=== PATIENT | male | born 1995 | race Caucasian/White ===

== ENCOUNTER 2017-08-07 20:29 | Inpatient (IN) | payer BC ==
--- NOTE | 2017-08-07 20:53 | EDPHY ---
H & P Stated Complaint: Cellulitis progressing down arm. - Personal History Current Tetanus/Diphtheria Vaccine: Unsure Current Tetanus Diphtheria and Acellular Pertussis (TDAP): Unsure - Medical/Surgical History Hx Asthma: No Hx Chronic Respiratory Disease: No Hx Diabetes: No Hx Cardiac Disease: No Hx Renal Disease: No Hx Cirrhosis: No Hx Alcoholism: Yes Hx HIV/AIDS: No Hx Splenectomy or Spleen Trauma: No Other PMH: Anxiety, ADHD. - Social History Smoking Status: Current some day smoker Time Seen by Provider: 08/07/17 20:40 HPI/ROS: CHIEF COMPLAINT: Worsening left elbow erythema HISTORY OF PRESENT ILLNESS: 22-year-old immunocompetent male with no history of chronic skin infections complaining of progressively enlarging left elbow erythema. The erythema started 4 days ago, he was seen emergency department in [place], [place], given intramuscular injection of unknown medicines, possible Rocephin, discharged with Keflex which she has been taking. Notes that the erythema has become progressively larger. He denies fever, chills, nausea, vomiting, IV drug use history, urethritis symptoms. REVIEW OF SYSTEMS: A ten point review of systems was performed and is negative with the exception of the items mentioned in the HPI PAST MEDICAL & SURGICAL HISTORY: No history of chronic skin infections SOCIAL HISTORY:Nonsmoker. Student. PHYSICAL EXAM (Prior to examination, patient consented to physical exam, hands were washed and my usual and customary physical exam procedures followed) 1) GENERAL: Well-developed, well-nourished, alert and oriented. Appears to be in no acute distress. 2) HEAD: Normocephalic, atraumatic 3) HEENT: Pupils equal, round, reactive to light bilaterally. Sclera anicteric. Nasopharynx, oropharynx, clear, no lesions. Ears bilaterally with normal tympanic membranes. 4) NECK: Full range of motion, no meningeal signs. 5) LUNGS: Clear auscultation bilaterally, no wheezes, no rhonchi, no retractions. 6) HEART: Regular rate and rhythm, no murmur, no heave, no gallop. 7) ABDOMEN: No guarding, no rebound, no focal tenderness, negative McBurney's, negative Dhillon's, negative Rovsing's, negative peritoneal sign, 8) MUSCULOSKELETAL: Left upper extremity: Dorsal aspect of left elbow beefy red erythema, induration to the dorsal aspect which has extended beyond the areas of delineation. No lymphangitic streaking. No crepitus. 9) BACK: No CVA tenderness, no midline vertebral tenderness, no fluctuance, no step-off, no obvious trauma, no visual or palpable abnormality. 10) SKIN: No rash, no petechiae. 11) Psychiatric: Patient is oriented X 3, there is no agitation. DIFFERENTIAL DIAGNOSIS: In no particular include but limited to septic arthritis, septic olecranon bursitis, cellulitis, necrotizing fasciitis (Marco A Rouse) Constitutional: Initial Vital Signs Temperature (C) 36.7 C 08/07/17 20:34 Heart Rate 97 08/07/17 20:34 Respiratory Rate 16 08/07/17 20:34 Blood Pressure 119/65 08/07/17 20:34 O2 Sat (%) 99 08/07/17 20:34 O2 Delivery Mode Room Air Allergies/Adverse Reactions: amoxicillin Allergy (Verified 08/07/17 20:38) Home Medications: Medication Instructions Recorded Adderall 10 mg Tablet 08/07/17 Lexapro 08/07/17 Medical Decision Making - Diagnostics Imaging Results: Imaging Impressions Elbow X-Ray 08/07/17 20:54 Impression: 1. No underlying osseous abnormality seen left elbow. 2. Soft tissue swelling along the dorsal aspect proximal ulna. Images reviewed by myself (Marco A Rouse) ED Course/Re-evaluation: I evaluated this patient and examined his arm. This is not an intra-articular infection as he has excellent range of motion of the left elbow. This looks like a septic olecranon bursitis which is not responding to the intramuscular antibiotics he received a couple of days ago in a different town. Due to the worsening aspect of this and the fact that it may need to be drained we will admit this patient to the hospital for IV vancomycin. He does have some significant cellulitis around the dorsal elbow in addition to some lymphangitis and positive axillary lymph nodes. (Uriel Amaro) 8:53 p.m.: Patient was also seen exam by Dr. Uriel Amaro in the ER. Doubt necrotizing fasciitis. Doubt septic arthritis. Septic olecranon bursitis is not ruled out. At this time will hold on aspiration given the extent of erythema induration and risk of introducing is infection. 9:35 p.m.: Consultation with hospitalist Dr. Rudolph who will admit patient for left elbow cellulitis. (Marco A Rouse) - Data Points Laboratory Results: Laboratory Results 08/07/17 21:00 08/07/17 21:00 08/07/17 08/07/17 08/07/17 21:00 21:00 21:00 WBC 7.63 10^3/uL 10^3/uL (3.80-9.50) RBC 5.47 10^6/uL 10^6/uL (4.40-6.38) Hgb 16.7 g/dL g/dL (13.7-17.5) Hct 47.2 % % (40.0-51.0) MCV 86.3 fL fL (81.5-99.8) MCH 30.5 pg pg (27.9-34.1) MCHC 35.4 g/dL g/dL (32.4-36.7) RDW 12.0 % % (11.5-15.2) Plt Count 154 10^3/uL 10^3/uL (150-400) MPV 10.1 fL fL (8.7-11.7) Neut % (Auto) 70.2 % % (39.3-74.2) Lymph % (Auto) 19.0 % % (15.0-45.0) Hall % (Auto) 8.7 % % (4.5-13.0) Eos % (Auto) 1.4 % % (0.6-7.6) Baso % (Auto) 0.4 % % (0.3-1.7) Nucleat RBC Rel Count 0.0 % % (0.0-0.2) Absolute Neuts (auto) 5.36 10^3/uL 10^3/uL (1.70-6.50) Absolute Lymphs (auto) 1.45 10^3/uL 10^3/uL (1.00-3.00) Absolute Monos (auto) 0.66 10^3/uL 10^3/uL (0.30-0.80) Absolute Eos (auto) 0.11 10^3/uL 10^3/uL (0.03-0.40) Absolute Basos (auto) 0.03 10^3/uL 10^3/uL (0.02-0.10) Absolute Nucleated RBC 0.00 10^3/uL 10^3/uL (0-0.01) Immature Gran % 0.3 % % (0.0-1.1) Immature Gran # 0.02 10^3/uL 10^3/uL (0.00-0.10) PT 14.6 SEC SEC (12.0-15.0) INR 1.12 (0.83-1.16) APTT 26.7 SEC SEC (23.0-38.0) VBG Lactic Acid Sodium 141 mEq/L mEq/L (134-144) Potassium 4.0 mEq/L mEq/L (3.5-5.2) Chloride 96 mEq/L L mEq/L (97-110) Carbon Dioxide 28 mEq/l mEq/l (22-31) Anion Gap 17 mEq/L H mEq/L (8-16) BUN 21 mg/dL mg/dL (7-23) Creatinine 0.9 mg/dL mg/dL (0.7-1.3) Estimated GFR > 60 Glucose 111 mg/dL H mg/dL (70-100) Calcium 10.1 mg/dL mg/dL (8.5-10.4) Total Bilirubin 0.8 mg/dL mg/dL (0.1-1.4) 08/07/17 21:00 WBC RBC Hgb Hct MCV MCH MCHC RDW Plt Count MPV Neut % (Auto) Lymph % (Auto) Hall % (Auto) Eos % (Auto) Baso % (Auto) Nucleat RBC Rel Count Absolute Neuts (auto) Absolute Lymphs (auto) Absolute Monos (auto) Absolute Eos (auto) Absolute Basos (auto) Absolute Nucleated RBC Immature Gran % Immature Gran # PT INR APTT VBG Lactic Acid 1.2 mmol/L mmol/L (0.7-2.1) Sodium Potassium Chloride Carbon Dioxide Anion Gap BUN Creatinine Estimated GFR Glucose Calcium Total Bilirubin Medications Given: Discontinued Medications Cefazolin Sodium/Dextrose (Ancef 1 Gm (Premix)) 50 mls @ 200 mls/hr IV EDNOW ONE PRN Reason: Protocol Stop: 08/07/17 21:08 Last Admin: 08/07/17 21:10 Dose: 50 mls Departure - Departure Disposition: [facility] Inpatient Acute Clinical Impression: Cellulitis of left arm Condition: Good Referrals: LUZMARIA HANKINS [Other] - As per Instructions
[2017-08-07 21:12] LABS: % IMMATURE GRANULYOCYTES 0.3 % (0.0-1.1); ABSOLUTE IMMATURE GRANULOCYTES 0.02 10^3/uL (0.00-0.10); ADD DIFF? NO; ADD MORPH? NO; ADD SCAN? NO; ATYPICAL LYMPHOCYTE FLAG 10 (0-99); FRAGMENT RBC FLAG 0 (0-99); HEMATOCRIT 47.2 % (40.0-51.0); HEMOGLOBIN 16.7 g/dL (13.7-17.5); LEFT SHIFT FLG 0 (0-99); LIPEMIA HEMOLYSIS FLAG 90 (0-99); MEAN CELL HEMOGLOBIN 30.5 pg (27.9-34.1); MEAN CELL HEMOGLOBIN CONCENTR. 35.4 g/dL (32.4-36.7); MEAN CELL VOLUME 86.3 fL (81.5-99.8); MEAN PLATELET VOLUME 10.1 fL (8.7-11.7); PLATELET CLUMPS FLAG 0 (0-99); PLATELET COUNT 154 10^3/uL (150-400); RED BLOOD CELL COUNT 5.47 10^6/uL (4.40-6.38)
[2017-08-07 21:20] LABS: INR 1.12 (0.83-1.16); PROTIME(PATIENT) 14.6 SEC (12.0-15.0)
[2017-08-07 21:21] LABS: APTT 26.7 SEC (23.0-38.0)
[2017-08-07 21:27] LABS: ANION GAP 17 mEq/L (8-16); BILIRUBIN,TOTAL 0.8 mg/dL (0.1-1.4); CALCIUM 10.1 mg/dL (8.5-10.4); CARBON DIOXIDE 28 mEq/l (22-31); CHLORIDE 96 mEq/L (97-110); CREATININE 0.9 mg/dL (0.7-1.3); GLOMERULAR FILTRATION RATE > 60; GLUCOSE 111 mg/dL (70-100); SODIUM 141 mEq/L (134-144)
[2017-08-07] MEDS ORDERED: ONDANSETRON 4 MG/2 ML VIAL IVP PRN (22:39)
[2017-08-07] MEDS ORDERED: ONDANSETRON DISINTEGRATING 4 MG TAB PO PRN (22:39)
[2017-08-07] MEDS ORDERED: LORazepam 2 MG/ML INJ IVP ONE (23:31)
[2017-08-07] MEDS ORDERED: diphenhydrAMINE 25 MG CAP PO PRN (23:40)
--- NOTE | 2017-08-07 23:51 | PDGENHP ---
History and Physical - Chief Complaint L elbow pain, redness - History of Present Illness 22 yo M w/ hx of anxiety, ADHD presents with L elbow pain, redness. Patient first noticed redness at the site on Monday. On Monday he went to an ED and received a dose of IV CTX and was then prescribed Keflex, which he was compliant with. Despite this, the redness continued to spread so he came to the ED. He has also experienced fever, chill, and pain/tenderness at the site. He has a small cut in the center of the erythematous area, which may have been the site of introduction. Of note, he has good range of motion with minimal pain, making septic arthritis very unlikely. History Information - Allergies/Home Medication List Allergies/Adverse Reactions: amoxicillin Allergy (Verified 08/07/17 20:38) Home Medications: Amphet Asp and D/Amphet [Adderall 10 MG (*)] 10 mg PO DAILY PRN 08/07/17 [Last Taken Unknown] Cephalexin [Keflex (*)] 500 mg PO QID 08/07/17 [Last Taken 08/07/17 15:00] Escitalopram Oxalate [Lexapro] 30 mg PO DAILY 08/07/17 [Last Taken 08/03/17] I have personally reviewed and updated: family history, medical history - Past Medical History Additional medical history: Anxiety, ADHD - Surgical History Reports: no pertinent surgical hx - Family History Additional family history: Asked, denies - Social History Smoking Status: Current some day smoker Review of Systems Review of Systems: ROS: 10pt was reviewed & negative except for what was stated in HPI & below Physical Exam Physical Exam: Temp Pulse Resp BP Pulse Ox 36.9 C 95 18 119/78 97 08/07/17 22:20 08/07/17 22:20 08/07/17 22:20 08/07/17 22:20 08/07/17 22:20 Constitutional: no apparent distress, not in pain Eyes: PERRL, EOMI Ears, Nose, Mouth, Throat: moist mucous membranes, no oral mucosal ulcers Cardiovascular: regular rate and rhythym, no murmur, rub, or gallop Respiratory: no respiratory distress, clear to auscultation Gastrointestinal: normoactive bowel sounds, soft, non-tender abdomen Skin: warm, other (Large area of erythema overlying L elbow; swelling predominantly in proximal, medial forearm) Musculoskeletal: full muscle strength, normal joint ROM (ROM in L elbow intact with minimal discomfort) Neurologic: AAOx3, CN II-XII Intact Psychiatric: interacting appropriately, not anxious Lab Data & Imaging Review 08/07/17 21:00 08/07/17 21:00 WBC 7.63 10^3/uL (3.80-9.50) 08/07/17 21:00 RBC 5.47 10^6/uL (4.40-6.38) 08/07/17 21:00 Hgb 16.7 g/dL (13.7-17.5) 08/07/17 21:00 Hct 47.2 % (40.0-51.0) 08/07/17 21:00 MCV 86.3 fL (81.5-99.8) 08/07/17 21:00 MCH 30.5 pg (27.9-34.1) 08/07/17 21:00 MCHC 35.4 g/dL (32.4-36.7) 08/07/17 21:00 RDW 12.0 % (11.5-15.2) 08/07/17 21:00 Plt Count 154 10^3/uL (150-400) 08/07/17 21:00 MPV 10.1 fL (8.7-11.7) 08/07/17 21:00 Neut % (Auto) 70.2 % (39.3-74.2) 08/07/17 21:00 Lymph % (Auto) 19.0 % (15.0-45.0) 08/07/17 21:00 [place] % (Auto) 8.7 % (4.5-13.0) 08/07/17 21:00 Eos % (Auto) 1.4 % (0.6-7.6) 08/07/17 21:00 Baso % (Auto) 0.4 % (0.3-1.7) 08/07/17 21:00 Nucleat RBC Rel Count 0.0 % (0.0-0.2) 08/07/17 21:00 Absolute Neuts (auto) 5.36 10^3/uL (1.70-6.50) 08/07/17 21:00 Absolute Lymphs (auto) 1.45 10^3/uL (1.00-3.00) 08/07/17 21:00 Absolute Monos (auto) 0.66 10^3/uL (0.30-0.80) 08/07/17 21:00 Absolute Eos (auto) 0.11 10^3/uL (0.03-0.40) 08/07/17 21:00 Absolute Basos (auto) 0.03 10^3/uL (0.02-0.10) 08/07/17 21:00 Absolute Nucleated RBC 0.00 10^3/uL (0-0.01) 08/07/17 21:00 Immature Gran % 0.3 % (0.0-1.1) 08/07/17 21:00 Immature Gran # 0.02 10^3/uL (0.00-0.10) 08/07/17 21:00 PT 14.6 SEC (12.0-15.0) 08/07/17 21:00 INR 1.12 (0.83-1.16) 08/07/17 21:00 APTT 26.7 SEC (23.0-38.0) 08/07/17 21:00 VBG Lactic Acid 1.2 mmol/L (0.7-2.1) 08/07/17 21:00 Sodium 141 mEq/L (134-144) 08/07/17 21:00 Potassium 4.0 mEq/L (3.5-5.2) 08/07/17 21:00 Chloride 96 mEq/L (97-110) L 08/07/17 21:00 Carbon Dioxide 28 mEq/l (22-31) 08/07/17 21:00 Anion Gap 17 mEq/L (8-16) H 08/07/17 21:00 BUN 21 mg/dL (7-23) 08/07/17 21:00 Creatinine 0.9 mg/dL (0.7-1.3) 08/07/17 21:00 Estimated GFR > 60 08/07/17 21:00 Glucose 111 mg/dL (70-100) H 08/07/17 21:00 Calcium 10.1 mg/dL (8.5-10.4) 08/07/17 21:00 Total Bilirubin 0.8 mg/dL (0.1-1.4) 08/07/17 21:00 Imaging Review: Elbow XR with only soft tissue swelling, no osseous abnormality. Assessment & Plan Assessment: 22 yo M w/ no significant PMHx presents w/ cellulitis of L arm. Plan: 1. Cellulitis of LUE - Significant erythema overlying L elbow; ROM full w/ minimal discomfort making septic arthritis very unlikely. XR with only soft tissue swelling. Redness progressed despite oral Keflex as an outpatient. Afebrile currently with normal WBC. - IV Cefazolin - Monitor for improvement; if not improving would consider MRI of upper extremity - Blood cultures ordered Diet - Regular Code - Full Ppx - Low risk Dispo - Admit to observation status
[2017-08-08] MEDS: ceFAZolin 2 GM/DEXTROSE 100 ML IV SCH ×3 (06:02→22:32)
[2017-08-08] MEDS: oxyCODONE IR 5 MG TAB PO PRN ×3 (06:03→22:42)
[2017-08-08] MEDS: ACETAMINOPHEN 325 MG TAB PO PRN (06:04)
[2017-08-08 06:12] LABS: % IMMATURE GRANULYOCYTES 0.3 % (0.0-1.1); ABSOLUTE IMMATURE GRANULOCYTES 0.02 10^3/uL (0.00-0.10); ADD DIFF? NO; ADD MORPH? NO; ADD SCAN? NO; ATYPICAL LYMPHOCYTE FLAG 10 (0-99); FRAGMENT RBC FLAG 0 (0-99); HEMATOCRIT 41.6 % (40.0-51.0); HEMOGLOBIN 14.8 g/dL (13.7-17.5); LEFT SHIFT FLG 0 (0-99); LIPEMIA HEMOLYSIS FLAG 90 (0-99); MEAN CELL HEMOGLOBIN 30.9 pg (27.9-34.1); MEAN CELL HEMOGLOBIN CONCENTR. 35.6 g/dL (32.4-36.7); MEAN CELL VOLUME 86.8 fL (81.5-99.8); MEAN PLATELET VOLUME 11.2 fL (8.7-11.7); PLATELET CLUMPS FLAG 10 (0-99); PLATELET COUNT 145 10^3/uL (150-400); RED BLOOD CELL COUNT 4.79 10^6/uL (4.40-6.38); RED CELL DISTRIBUTION WIDTH 11.9 % (11.5-15.2)
[2017-08-08 06:14] LABS: ANION GAP 13 mEq/L (8-16); CALCIUM 9.3 mg/dL (8.5-10.4); CARBON DIOXIDE 25 mEq/l (22-31); CHLORIDE 103 mEq/L (97-110); CREATININE 0.8 mg/dL (0.7-1.3); GLOMERULAR FILTRATION RATE > 60; GLUCOSE 108 mg/dL (70-100); POTASSIUM 3.9 mEq/L (3.5-5.2); SODIUM 141 mEq/L (134-144)
--- NOTE | 2017-08-08 11:21 | ASMTCMCOM ---
CM Note CM Note Notes: Patient admitted for L elbow cellulitis. Currently on IV Ancef, may need MRI of upper extremity. Patient is a student at , anticipate an independent discharge when medically stable. CM available for any discharge needs. Date Signed: 08/08/2017 11:21 AM Electronically Signed By:Sunni Collins RN
[2017-08-08] MEDS ORDERED: ESCITALOPRAM OXALATE 30 MG PO SCH (15:30)
--- NOTE | 2017-08-08 15:41 | HOSPPROG ---
Hospitalist Progress Note Assessment/Plan: DIAGNOSES: -Acute cellulitis of arm, suspect rhett given the appearance, has not been here long enough to really assess response to antibiotics but seems to be improving on the current regimen as best I can tell and will continue it #will try to get results from cultures in [place] where he reports having had a biopsy from a small amount of pus that they were able to express from his elbow where he had a small laceration. This was 3 days ago SUBJECTIVE: Feel somewhat better today but still with pain redness and heat at the arm, still moving elbow okay No chills or sweats, eating well no other new symptoms OBJECTIVE Vitals reviewed: Stable without fever so far Exam: alert oriented skin warm dry color ok; still with significant cellulitis of the posterior aspect of the upper arm wrapping around the elbow, the cellulitis distal to the elbow is notably better, no palpable abscess, no evidence of necrosis or tissue compromise, no evidence of a bursitis or bursa collection resps not labored lungs clear BSs heart regular abd soft nondistended nontender, bowel sounds present limbs warm, no edema iv site ok CBC and chemistry stable, cultures with no growth to date from our blood cultures Objective: Vital Signs Temp Pulse Resp BP Pulse Ox 37.1 C 80 16 108/67 97 08/08/17 11:00 08/08/17 11:00 08/08/17 11:00 08/08/17 11:00 08/08/17 11:00 Laboratory Results 08/08/17 04:36 08/08/17 04:36 08/07/17 08/08/17 08/09/17 06:59 06:59 06:59 Intake Total 100 Balance 100 PT 14.6 SEC (12.0-15.0) 08/07/17 21:00 INR 1.12 (0.83-1.16) 08/07/17 21:00 ICD10 Worksheet Patient Problems: Problems Problem Status Onset Cellulitis of left arm Acute
[2017-08-08] MEDS: ESCITALOPRAM OXALATE 10 MG TAB PO SCH (16:44)
--- NOTE | 2017-08-09 05:56 | PDMN ---
Medical Necessity Medical necessity: Pt meets INPT criteria per MD as of 08/08/17 and MCG M-70 Cellulitis (LOS >2 MN for ongoing IVABx and monitoring of acute cellulitis of arm; failure of outpt tx - progression of sx after oral antibiotics per MD progress note and H&P).
[2017-08-09] MEDS: ceFAZolin 2 GM/DEXTROSE 100 ML IV SCH ×3 (06:15→21:31)
--- NOTE | 2017-08-09 10:01 | HOSPPROG ---
Hospitalist Progress Note Assessment/Plan: DIAGNOSES: -Acute cellulitis of arm with both MSSA and group a strep growing according to cultures from [facility] # at this time he still has significant cellulitis and improvement is slow, recommend continuing inpatient antibiotic here for at least 1 more day and he is in agreement to this. Still no signs of abscess or tissue compromise and no sign of deep soft tissue or bone infection SUBJECTIVE: Feel somewhat better today but still with pain redness and heat at the arm, still moving elbow okay No chills or sweats, eating well no other new symptoms OBJECTIVE Vitals reviewed: Stable without fever so far Exam: alert oriented skin warm dry color ok; the cellulitis today is somewhat improved from yesterday but still covers the same extent in still with fairly significant swelling redness and tenderness over the affected area. I cannot palpate any fluctuance and do not see any sign of deep soft tissue infection or joint infection. He is moving all of his joints in the upper extremity normally. No areas of necrosis or other compromise that way. resps not labored lungs clear BSs heart regular abd soft nondistended nontender, bowel sounds present limbs warm, no edema iv site ok no growth to date from our blood cultures Objective: Vital Signs Temp Pulse Resp BP Pulse Ox 36.8 C 67 16 147/53 H 96 08/08/17 22:43 08/08/17 22:43 08/08/17 22:43 08/08/17 22:43 08/08/17 22:43 08/08/17 08/09/17 08/10/17 06:59 06:59 06:59 Intake Total 1450 Balance 1450 PT 14.6 SEC (12.0-15.0) 08/07/17 21:00 INR 1.12 (0.83-1.16) 08/07/17 21:00 ICD10 Worksheet Patient Problems: Problems Problem Status Onset Cellulitis of left arm Acute
[2017-08-09] MEDS: ESCITALOPRAM OXALATE 10 MG TAB PO SCH (11:16)
[2017-08-09] MEDS ORDERED: MBX SOLN 30 ML BOTTLE PO PRN (12:07)
[2017-08-09] MEDS: ACETAMINOPHEN 325 MG TAB PO PRN (16:17)
[2017-08-09 19:17] VITALS: RESP 16
[2017-08-10] MEDS: ceFAZolin 2 GM/DEXTROSE 100 ML IV SCH (05:29)
[2017-08-10 08:06] VITALS: BP 109/61; PULSE 68; TEMP 97.5; O2SAT 95
--- NOTE | 2017-08-10 08:59 | PDDCSUM ---
Discharge Summary Discharge Summary: DISCHARGE DIAGNOSES: Cellulitis of left arm, not responding to oral antibiotics as outpatient; MSSA and Streptococcus both growing from wound culture done elsewhere HOSPITAL COURSE SUMMARY: This patient had a small laceration on his left elbow that led to onset of cellulitis approximately 5 or 6 days before presenting here. 3 days before presenting here had been seen elsewhere and in the ER. A small amount of pus was obtained there from the wound is elbow and cultured. I called that facility in going to son and his cultures were showing MSSA and a group a strep. The patient had been treated initially 3 days before admission here with 1 dose of IM antibiotic presumably Rocephin and was given a prescription for Keflex though he was instructed to take 1000 mg twice daily. Initially the patient had some mild improvement but then his cellulitis spread and became more intense and he developed fevers and increasing pain. He presented here to our ER. On exam here he had obvious marked cellulitis but no abscess or drainage from his wounds, no tissue compromise, no evidence of joint or tendon infection. He was started on IV Ancef here and responded quite well to that. We treated with that antibiotic along with elevation of his arm and he and by the time of discharge he has significant resolution of most of his cellulitis findings. No other complications noted He is stable for discharge in changed to p.o. antibiotics again at this time. He is instructed however take his Keflex 500 mg 4 times daily. PENDING TEST RESULTS: None MEDICATION CHANGES: Continue 7 more days of Keflex 500 mg 4 times daily FOLLOW-UP PLAN: He will make an appointment to be seen it would not work [place] 4 days from now Greater than 35 minutes bedside and care coordination time today
[2017-08-10] MEDS: ESCITALOPRAM OXALATE 10 MG TAB PO SCH (09:22)
--- NOTE | 2017-08-10 09:43 | ASMTCMCOM ---
CM Note CM Note Notes: Pt to DC today with no needs. Pt's father sked for a note to [employer] so that pt can get his finals rescheduled. Date Signed: 08/10/2017 09:43 AM Electronically Signed By:Makayla Roberson LCSW
--- NOTE | 2017-08-10 11:28 | ASDISCHSUM ---
Discharge Information Plan Status: Medically Cleared to Leave: Discharge Date:08/10/2017 10:22 AM D/C Disposition: ADT D/C Disposition:Home, Routine, Self-Care Projected Discharge Date:08/10/2017 10:22 AM Transportation at D/C: Discharge Delay Reason: Follow-Up Date:08/10/2017 10:22 AM Discharge Slot: Final Diagnosis: Placement Information Patient Contact Information Contact Name:GUY Relationship:Father Address:[address] [address] Work Phone: City:[place] Alternate Phone: State/Zip Code:[place] [address] Email: Financial Information Financial Class:O and PPO Plans Primary Plan Desc: OUT OF STATE PPO Primary Plan Number:[id number] Secondary Plan Desc: Secondary Plan Number: Assessment Information [facility] CM Progress Note CM Note CM Note Notes: Patient admitted for L elbow cellulitis. Currently on IV Ancef, may need MRI of upper extremity. Patient is a student at , anticipate an independent discharge when medically stable. CM available for any discharge needs. Date Signed: 08/08/2017 11:21 AM Electronically Signed By:Sunni Collins RN [facility] CM Progress Note CM Note CM Note Notes: Pt to DC today with no needs. Pt's father sked for a note to so that pt can get his finals rescheduled. Date Signed: 08/10/2017 09:43 AM Electronically Signed By:Makayla Roberson LCSW Intervention Information
== END 2017-08-10 10:22 | disposition home or self-care (01) | DRG 603 ==
LOC: F3N 08-08 00:11 → F1N 08-08 16:09 → OBSVTOIN 08-08 21:38
PROVIDERS: ADMIT Internal Medicine; ATTEND Internal Medicine
DX: L03.114 Cellulitis of left upper limb (principal); F41.9 Anxiety disorder, unspecified; F90.9 Attention-deficit hyperactivity disorder, unspecified type; B95.61 Methicillin susceptible Staphylococcus aureus infection as the cause of diseases classified elsewhere; B95.0 Streptococcus, group A, as the cause of diseases classified elsewhere
CPT/HCPCS: 96365; G0378; J0690; J2060

== ENCOUNTER 2017-11-28 14:50 | Emergency (ER) | payer BC ==
[2017-11-28 15:02] VITALS: BP 115/70; PULSE 68; RESP 18; TEMP 97.9; O2SAT 95
--- NOTE | 2017-11-29 00:44 | EDPHY ---
ED Progress Note Narrative: This patient left without being seen. I did not see this patient while they were in the emergency department.
== END 2017-11-28 18:16 | disposition left against medical advice (07) ==
DX: Z53.21 Procedure and treatment not carried out due to patient leaving prior to being seen by health care provider (principal)

== ENCOUNTER 2017-12-10 06:48 | Emergency (ER) | payer BC ==
--- NOTE | 2017-12-10 07:15 | EDPHY ---
H & P Time Seen by Provider: 12/10/17 07:07 HPI/ROS: CHIEF COMPLAINT: Left knee pain HISTORY OF PRESENT ILLNESS: Patient is a 22-year-old male presents emergency department with left knee pain. Patient states he was wrestling his friend yesterday. He is not totally recall what happened because he was drinking. He went to bed. When he woke up this morning as severe left knee pain. Is primarily on the lateral aspect of his left knee. It is worse with movement. He reports swelling. No fevers or chills. No numbness or tingling. Patient states that when he was a baby broke 1 of his legs but does not remember which 1. No other injury or surgery REVIEW OF SYSTEMS: My complete review of systems is negative except as mentioned in the HPI. Past Medical/Surgical History: Anxiety, attention deficit hyperactivity disorder, cellulitis Social history: The patient is a student at [employer] Smoking Status: Never smoked Physical Exam: Afebrile General Appearance: Alert and no distress. Head: Pupils equal. Normal. Respiratory: No respiratory distress. Cardiac: regular rate and rhythm. Extremities: Mild swelling of the left knee when compared to the right. No warmth or erythema. No patellar tenderness palpation. Patient has tenderness to palpation to the lateral aspect of his knee. The patient has pain on the lateral aspect of his knee with valgus stress. Neurovascularly intact distally. Normal popliteal pulse. Skin: No rashes or lesions. Neuro: Alert. Normal mood and affect. Constitutional: Initial Vital Signs Temperature (C) 36.7 C 12/10/17 06:56 Heart Rate 90 12/10/17 06:56 Respiratory Rate 18 12/10/17 06:56 Blood Pressure 137/78 H 12/10/17 06:56 O2 Sat (%) 96 12/10/17 06:56 O2 Delivery Mode Room Air Allergies/Adverse Reactions: amoxicillin Allergy (Verified 12/10/17 06:55) Home Medications: Medication Instructions Recorded Amphet Asp and D/Amphet [Adderall 10 mg PO DAILY PRN 08/07/17 10 MG (*)] Escitalopram Oxalate [Lexapro] 30 mg PO DAILY 08/07/17 Medical Decision Making ED Course/Re-evaluation: In the emergency department I discussed possible etiologies with the patient. I answered all his questions. X-ray was ordered. Left knee x-ray: Please refer the dictated report. No acute disease noted. I discussed the results with the patient. I answered all his questions. Patient was placed in a knee immobilizer. He was given crutches. He is given follow-up with Orthopedics. Differential Diagnosis: My differential includes but is not limited to fracture, dislocation, contusion , ligamentous injury, meniscus injury, fusion, septic joint - Data Points Medications Given: Discontinued Medications Ibuprofen (Motrin) 600 mg PO EDNOW ONE Stop: 12/10/17 07:42 Last Admin: 12/10/17 07:42 Dose: 600 mg Departure - Departure Disposition: Home, Routine, Self-Care Clinical Impression: Left knee pain Qualifiers: Chronicity: acute Qualified Code(s): M25.562 - Pain in left knee Condition: Good Instructions: Knee Pain (ED) Additional Instructions: You need follow-up with Orthopedics. The contact information has been given. Call Monday to make the next available appointment. [facility] also [facility] with [facility]. Referrals: Ashu Serrano MD [Medical Doctor] - 5-7 days, call for appt.
[2017-12-10] MEDS ORDERED: IBUPROFEN 600 MG TAB PO ONE ×2 (07:37→07:41)
[2017-12-10 08:12] VITALS: BP 125/78
== END 2017-12-10 08:16 | disposition home or self-care (01) ==
DX: M25.562 Pain in left knee (principal)